=== PATIENT | female | born 1955 | race Caucasian/White ===

== ENCOUNTER 2017-11-28 11:28 | Emergency (ER) | payer BC ==
[2017-11-28 12:05] VITALS: BP 115/58
--- NOTE | 2017-11-28 12:53 | UC ---
General HPI - HPI Summary HPI Summary: pt states ill for past week with head cold. now worse with sinus pressure and numbness L cheek, ear pain, cough and green nasal discharge. hx sinus infections with same symptoms. No GANNON, changes in vision/speech. no numb/ tingling or weakness to arms legs and denies gait/balance disturbances. - History of Current Complaint Chief Complaint: UCRespiratory Stated Complaint: SINUS Time Seen by Provider: 11/28/17 12:47 Hx Obtained From: Patient Onset/Duration: Gradual Onset Timing: Constant Pain Intensity: 8 Aggravating: nothing Alleviating: nothing Associated Signs & Symptoms: Positive: Cough. Negative: Fever, Headache, Weakness - Allergy/Home Medications Allergies/Adverse Reactions: Allergies Allergy/AdvReac Type Severity Reaction Status Date / Time propofol [From Diprivan] Allergy See Comment Verified 11/28/17 11:55 Home Medications: Home Medications Cholecalciferol TAB* [Vitamin D TAB*] 125 mg PO WEEKLY 11/28/17 [History Confirmed 11/28/17] Estradiol PATCH 0.05MG/DAY* [Climara PATCH 0.05 MG/DAY*] 0.05 mg .SEE ORDER WEEKLY 11/28/17 [History Confirmed 11/28/17] Hydroxychloroquine TAB* [Plaquenil TAB*] 200 mg PO DAILY 11/28/17 [History Confirmed 11/28/17] Olmesartan (NF) [Benicar (NF)] 20 mg PO DAILY 11/28/17 [History Confirmed ] Sitagliptin Phosphate [Januvia] 25 mg PO DAILY 11/28/17 [History Confirmed 11/28] metFORMIN* [Glucophage 500 MG TAB *] 500 mg PO DAILY 11/28/17 [History Confirmed 11/28/17] PMH/Surg Hx/FS Hx/Imm Hx - Additional Past Medical History Additional PMH: fibromyalgia. psoriatic arthritis Endocrine History: Diabetes - Surgical History Surgical History: Yes Surgery Procedure, Year, and Place: hysterectomy 2009. C sections 1986, . ablation 2009. gall bladder 1989 - Family History Known Family History: Positive: Diabetes - Social History Occupation: Retired Lives: With Family Alcohol Use: Occasionally Substance Use Type: None Smoking Status (MU): Never Smoked Tobacco - Immunization History Vaccination Up to Date: Yes Review of Systems Constitutional: Negative Skin: Negative Eyes: Negative ENT: Ear Ache, Nasal Discharge - green, Sinus Congestion, Sinus Pain/Tenderness Respiratory: Cough Cardiovascular: Negative Gastrointestinal: Negative Genitourinary: Negative Motor: Negative Neurovascular: Negative Musculoskeletal: Negative Neurological: Negative Psychological: Negative Is Patient Immunocompromised?: No All Other Systems Reviewed And Are Negative: Yes Physical Exam Triage Information Reviewed: Yes Appearance: Well-Appearing Vital Signs: Initial Vital Signs Temp 98.2 F 11/28/17 12:00 Pulse 102 11/28/17 12:00 Resp 20 11/28/17 12:00 BP 115/58 11/28/17 12:00 Pulse Ox 96 11/28/17 12:00 Vital Signs Reviewed: Yes Eyes: Positive: Conjunctiva Clear ENT: Positive: Pharynx normal, Nasal congestion, TM red - AU but no bulding, Sinus tenderness - L frontal and maxilla. Negative: Nasal drainage Neck: Positive: Supple, Nontender, No Lymphadenopathy Respiratory: Positive: Lungs clear, Normal breath sounds Cardiovascular: Positive: RRR, No Murmur Abdomen Description: Positive: Nontender, No Organomegaly, Soft Bowel Sounds: Positive: Present Musculoskeletal: Positive: ROM Intact Neurological: Positive: Other: - A&O x3, CN 2-12 grossly intact. steady gait and gross s/v/m intact x4. Psychological: Positive: Age Appropriate Behavior Skin Exam: Normal Course/Dx - Course Course Of Treatment: no concern for CVA, exam c/w sinusitis. tm's red but good [place] wom[place]. lungs clear. will tx with augmentin. - Differential Dx - Multi-Symptom Provider Diagnoses: sinusitis, otalgia, cough Discharge - Sign-Out/Discharge Documenting (check all that apply): Discharge/Admit/Transfer - Discharge Plan Condition: Stable Disposition: HOME Prescriptions: Amoxicillin/Clavulanate TAB* [Augmentin TAB 875*] 875 mg PO BID #20 tab Patient Education Materials: Sinusitis (ED), Earache (ED), Acute Cough (ED) Referrals: Rosalva Hall MD [Primary Care Provider] - 7 Days - Billing Disposition and Condition Condition: STABLE Disposition: HOME
== END 2017-11-28 13:04 | disposition home or self-care (01) ==
LOC: UCCORT 11:28
DX: J32.9 Chronic sinusitis, unspecified (principal); H92.09 Otalgia, unspecified ear; R05 Cough; E11.9 Type 2 diabetes mellitus without complications; Z88.8 Allergy status to other drugs, medicaments and biological substances
CPT/HCPCS: 99212; G0463

== ENCOUNTER 2017-12-06 09:24 | Emergency (ER) | payer BC ==
--- NOTE | 2017-12-06 09:46 | UC ---
Throat Pain/Nasal Gilbert HPI - HPI Summary HPI Summary: Patient is finishing the last 2 days of Augmentin for left otitis. Patient believes that that's better but now has congestion in both of her ears or nose or sinuses down into her throat. . They feel crackly and uncomfortable has tried Mucinex for 1 day to try Sudafed a little bit. Patient also complains of vaginal yeast infection but did not take the Diflucan was provided for her on initial diagnosis - History of Current Complaint Chief Complaint: UCEar Stated Complaint: LEFT EAR PAIN Time Seen by Provider: 12/06/17 09:37 Hx Obtained From: Patient ?: No Onset/Duration: Sudden Onset Severity: Mild Cough: None Associated Signs & Symptoms: Positive: Sinus Discomfort, Nasal Discharge - Allergies/Home Medications Allergies/Adverse Reactions: Allergies Allergy/AdvReac Type Severity Reaction Status Date / Time propofol [From Diprivan] Allergy See Comment Verified 12/06/17 09:46 erythromycin base AdvReac GI Upset Verified 12/06/17 09:47 Home Medications: Home Medications Adalimumab [Humira] 10 mg SC 12/06/17 [History] PMH/Surg Hx/FS Hx/Imm Hx Previously Healthy: No Endocrine History: Diabetes, Dyslipidemia - Surgical History Surgical History: Yes Surgery Procedure, Year, and Place: hysterectomy 2009. C sections 1986, . ablation 2009. gall bladder 1989 - Family History Known Family History: Positive: Diabetes - Social History Occupation: Employed Full-time Lives: With Family Alcohol Use: Occasionally Substance Use Type: None Smoking Status (MU): Never Smoked Tobacco - Immunization History Vaccination Up to Date: Yes Review of Systems Constitutional: Negative Skin: Negative Eyes: Negative ENT: Negative, Sore Throat, Ear Ache, Nasal Discharge, Sinus Congestion Respiratory: Negative Cardiovascular: Negative Gastrointestinal: Negative Genitourinary: Negative Motor: Negative Neurovascular: Negative Musculoskeletal: Negative Neurological: Negative Psychological: Negative Is Patient Immunocompromised?: No All Other Systems Reviewed And Are Negative: Yes Physical Exam Triage Information Reviewed: Yes Appearance: Well-Appearing, No Pain Distress, Well-Nourished Vital Signs Reviewed: Yes Eye Exam: Normal Eyes: Positive: Conjunctiva Clear ENT Exam: Normal ENT: Positive: Normal ENT inspection, Hearing grossly normal, Pharynx normal, Nasal congestion, Nasal drainage, TMs normal, Uvula midline. Negative: Tonsillar swelling, Tonsillar exudate, Trismus, Muffled voice, Hoarse voice, Dental tenderness, Sinus tenderness Dental Exam: Normal Neck exam: Normal Neck: Positive: Supple, Nontender, No Lymphadenopathy Respiratory Exam: Normal Respiratory: Positive: Chest non-tender, Lungs clear, Normal breath sounds, No respiratory distress, No accessory muscle use Cardiovascular Exam: Normal Cardiovascular: Positive: RRR, No Murmur, Pulses Normal, Brisk Capillary Refill Musculoskeletal Exam: Normal Musculoskeletal: Positive: Strength Intact, ROM Intact, No Edema Neurological Exam: Normal Neurological: Positive: Alert, Muscle Tone Normal Psychological Exam: Normal Skin Exam: Normal Throat Pain/Nasal Course/Dx - Course Assessment/Plan: mucinex d, flonase, nasal rinse,finish augmentin.Use diflucan and may be repeated in 4 days if needed, - Differential Dx/Diagnosis Provider Diagnoses: eustation tube dysfunction Discharge - Sign-Out/Discharge Documenting (check all that apply): Discharge/Admit/Transfer - Discharge Plan Condition: Stable Disposition: HOME Prescriptions: Fluconazole 150 MG (NF) [Diflucan 150 mg (NF)] 150 mg PO ONCE #1 tab Fluticasone NASAL SPRAY 50MCG* [Flonase NASAL SPRAY 50MCG*] 2 spray BOTH NARES DAILY #1 btl Patient Education Materials: Decongestant/Expectorant (By mouth), Barotitis Media (ED), Oral Candidiasis (ED), Serous Otitis Media (ED) Referrals: Rosalva Hall MD [Primary Care Provider] - If Needed - Billing Disposition and Condition Condition: STABLE Disposition: HOME
[2017-12-06 09:57] VITALS: BP 115/74
== END 2017-12-06 10:02 | disposition home or self-care (01) ==
LOC: UCCORT 09:24
DX: H69.80 Other specified disorders of Eustachian tube, unspecified ear (principal); Z88.1 Allergy status to other antibiotic agents; Z88.8 Allergy status to other drugs, medicaments and biological substances; E11.9 Type 2 diabetes mellitus without complications
CPT/HCPCS: 99212; G0463